=== PATIENT | female | born 1955 | race Caucasian/White ===

== ENCOUNTER 2019-03-16 20:33 | Emergency (ER) | payer MEDICARE ==
[~2019-03-16] VITALS: Ht 172.7 cm; Wt 75.0 kg
[2019-03-16 21:10] LABS: HEMOGLOBIN 14.9 g/dl (12.0-16.0); IMMATURE GRANULOCYTES 0.4 % (0.0-5.0); MEAN CELL VOLUME 90.7 fL CALC (80.0-100.0); MEAN CORPUSCULAR HGB CONC 33.1 g/L CALC (32.0-36.0); NEUT# 5.03 thou/uL (2.00-7.15); RED BLOOD COUNT 4.96 mill/uL (4.20-5.60); RED CELL DISTRI WIDTH 12.9 % (11.5-15.5)
[2019-03-16 21:29] LABS: ALBUMIN 4.9 g/dL (3.2-5.0); ALKALINE PHOSPHATASE 148 u/l (38-126); ANION GAP 18 (6-22 (CALC)); BILIRUBIN, TOTAL 0.7 mg/dL (0.0-1.4); BUN 13 mg/dL (8-23); BUN/CREATININE RATIO 23 (12-20 (CALC)); CARBON DIOXIDE 24 mmol/l (22-30); CHLORIDE 102 mmol/l (95-108); CREATININE 0.5 mg/dL (0.5-1.0); GFR > 60 ML/MIN (>=60 (CALC)); GFR FOR AFR.AMER. > 60 ML/MIN (>=60 (CALC)); POTASSIUM 3.5 mmol/l (3.5-5.1); SODIUM 141 mmol/l (137-146); TOTAL PROTEIN 8.5 g/dL (6.3-8.2)
[2019-03-16 21:30] LABS: SGOT/AST 33 u/l (9-36)
[2019-03-16 21:40] LABS: MYOGLOBIN 157 ng/mL (0 - 62)
[2019-03-16 22:30] VITALS: BP 142/75
== END 2019-03-16 22:35 | disposition short-term general hospital (02) ==
LOC: ED 20:33
PROVIDERS: Emergency Medicine
DX: R07.9 Chest pain, unspecified (principal); R79.89 Other specified abnormal findings of blood chemistry; G35 Multiple sclerosis